=== PATIENT | male | born 1990 | race African-American/Black ===

== ENCOUNTER 2016-08-31 09:40 | Emergency (ER) | payer MEDICAID ==
[~2016-08-31] VITALS: Ht 190.5 cm; Wt 127.0 kg
[2016-08-31] MEDS ORDERED: IBUPROFEN600 MG ORAL (10:54)
--- NOTE | 2016-08-31 11:00 | Emergency Room Report ---
History of Present Illness General Chief Complaint: Lower Extremity Injury Source: Patient Present Illness HPI 26YOM with 10 days right lateral foot pain s/p twisting it. Has been applying ice, aspercream. Still swollen. Able to ambulate. Denies pain to ankle, lower leg, knee. Denies previous ankle/foot injury. Allergies: Coded Allergies: No Known Allergies (Unverified , 08/31/16) Patient History Past Medical History: none Past Surgical History: none Pertinent Family History: none Social History: Denies: alcohol use, drug use, smoking Immunizations: UTD Reviewed Nursing Documentation: PMH: Agreed, PSxH: Agreed Nursing Documentation-PMH Past Medical History: No Stated History Review of Systems All Other Systems: negative except mentioned in HPI Physical Exam Vital Signs Date Time Temp Pulse Resp B/P Pulse Ox O2 Delivery O2 Flow Rate FiO2 08/31/16 09:50 98.1 67 18 134/94 98 Room Air Sp02 EP Interpretation: reviewed, normal General Appearance: normal inspection, well appearing, no apparent distress, alert, GCS 15, non-toxic Head: normocephalic, atraumatic Eyes: bilateral eye EOMI, bilateral eye PERRL ENT: normal ENT inspection, hearing grossly normal, normal voice Neck: normal inspection, full range of motion, supple, no bony tend Respiratory: normal inspection, lungs clear, normal breath sounds, no respiratory distress, no retraction, no wheezing Cardiovascular #1: regular rate, rhythm, no edema Gastrointestinal: normal inspection, normal bowel sounds, non tender, soft, no guarding, no hernia Genitourinary: no CVA tenderness Musculoskeletal: normal inspection, back normal, normal range of motion, Azeb' s Sign negative, other - Right foot: Swelling lateral aspect of foot. No ttp to maleoli or base of 5th metatarsal. 2++ dorsalis pedis Neurologic: normal inspection, alert, oriented x3, responsive, physical ther III-XII nml as tested, speech normal Psychiatric: normal inspection, judgement/insight normal, mood/affect normal Skin: normal inspection, normal color, no rash Lymphatic: normal inspection Medical Decision Making Diagnostic Impression: Primary Impression: Foot sprain Qualified Codes: S93.601A - Unspecified sprain of right foot, initial encounter ER Course Xrays negative for acute fracture Likely sprain Advised RICE Rx Ibuprofen, PMD followup [place] home Other X-Ray Diagnostic Results Other X-Ray Diagnostic Results : X-Ray Ordered: Right foot EP Interpretation: Yes Findings: no fractures, no dislocation, other - Soft stissue swelling Number of Views: 3 Last Vital Signs Date Time Temp Pulse Resp B/P Pulse Ox O2 Delivery O2 Flow Rate FiO2 08/31/16 09:50 98.1 67 18 134/94 98 Room Air Status: improved Disposition: HOME, SELF-CARE Condition: Improved Scripts Ibuprofen* (MOTRIN*) 600 Mg Tablet 600 MG ORAL THREE TIMES A DAY for For Pain, #30 TAB 0 Refills Prov: JAKE HERRERA M.D. 08/31/16 Patient Instructions: Foot Sprain Additional Instructions: - Apply ice up to 3x a day as needed for pain - Keep elevated at night - Take ibuprofen up to 3x a day as needed for pain with food - Follow up with your doctor as needed JAKE HERRERA M.D. Aug 31, 2016 10:59
[2016-08-31 11:03] VITALS: BP 134/94
--- NOTE | 2016-08-31 13:52 | Diagnostic Imaging Report ---
Indication: PAIN Technique: 3 views of the right ankle Comparison: none Findings: No acute fractures. No dislocations. Joint spaces are preserved. Normal mineralization. No radiopaque foreign body. There is slight soft tissue swelling over the lateral malleolus Impression: Negative
== END 2016-08-31 11:06 | disposition home or self-care (01) ==
LOC: EMR 10:43
DX: S93.601A Unspecified sprain of right foot, initial encounter (principal); X50.1XXA Overexertion from prolonged static or awkward postures, initial encounter; Y92.89 Other specified places as the place of occurrence of the external cause
CPT/HCPCS: 29540; 99283